=== PATIENT | female | born 1970 | race Caucasian/White ===

== ENCOUNTER 2017-06-15 14:58 | Emergency (ER) | payer OTHER ==
--- NOTE | 2017-06-15 16:22 | UC ---
Lower Extremity/Ankle HPI - HPI Summary HPI Summary: 46 year old female presents with complains of left knee pain secondary to falling at work. - History of Current Complaint Stated Complaint: LEFT KNEE INJURY WC Time Seen by Provider: 06/15/17 16:21 Hx Obtained From: Patient Hx Last Menstrual Period: December Onset/Duration: Sudden Onset Severity Initially: Moderate Severity Currently: Moderate Pain Scale Used: 0-10 Numeric - 5 - Allergies/Home Medications Allergies/Adverse Reactions: Allergies Allergy/AdvReac Type Severity Reaction Status Date / Time No Known Allergies Allergy Verified 06/15/17 16:19 Home Medications: Home Medications Ibuprofen [Advil] 800 mg PO ONCE PRN 06/15/17 [History Confirmed 06/15/17] PMH/Surg Hx/FS Hx/Imm Hx Previously Healthy: Yes - Surgical History Surgical History: Yes Surgery Procedure, Year, and Place: . Tubal Ligation - Family History Known Family History: Positive: None, Cardiac Disease - BROTHER'S FIRST HEART ATTACK IN EARLY 40'S, Diabetes - Social History Alcohol Use: Rare Substance Use Type: None Smoking Status (MU): Never Smoked Tobacco Review of Systems Constitutional: Negative Skin: Negative Eyes: Negative ENT: Negative Respiratory: Negative Cardiovascular: Negative Gastrointestinal: Negative Genitourinary: Negative Motor: Negative Neurovascular: Negative Musculoskeletal: Other: - left knee pain Neurological: Negative Psychological: Negative All Other Systems Reviewed And Are Negative: Yes Physical Exam Triage Information Reviewed: Yes Appearance: Well-Appearing Vital Signs Reviewed: Yes Eye Exam: Normal ENT Exam: Normal Dental Exam: Normal Neck exam: Normal Neck: Positive: 1 Respiratory Exam: Normal Cardiovascular Exam: Normal Abdominal Exam: Normal Musculoskeletal: Positive: Other: - left knee pain/swelling Neurological Exam: Normal Psychological Exam: Normal Skin Exam: Normal Lower Extremity Course/Dx - Differential Dx/Diagnosis Provider Diagnoses: left knee pain. left knee contusion Discharge - Discharge Plan Condition: Stable Disposition: HOME Prescriptions: Ibuprofen TAB* [Motrin TAB* 800 MG] 800 mg PO Q6H #30 tab Patient Education Materials: Knee Pain (ED) Referrals: Teddy Gutierrez MD [Medical Doctor] - Tesha Mcarthur MD [Primary Care Provider] -
[2017-06-15 16:25] VITALS: BP 113/82
--- NOTE | 2017-06-15 16:51 | RAD ---
INDICATION: Left knee pain. Fall. COMPARISON: None TECHNIQUE: AP, lateral, tunnel, and sunrise views were obtained. FINDINGS: The bony structures, joint spaces, and soft tissues are normal for age. IMPRESSION: NEGATIVE EXAMINATION.
== END 2017-06-15 17:09 | disposition home or self-care (01) ==
LOC: UCCORT 14:58
DX: S80.02XA Contusion of left knee, initial encounter (principal); W19.XXXA Unspecified fall, initial encounter; Y92.9 Unspecified place or not applicable; M25.562 Pain in left knee
CPT/HCPCS: 99213; G0463

== ENCOUNTER 2017-12-24 10:20 | Day surgery (SDC) | payer OTHER ==
--- NOTE | 2017-12-19 12:58 | HP ---
PREOPERATIVE HISTORY AND PHYSICAL: DATE OF ADMISSION/SURGERY: 12/24/17 DATE OF OFFICE VISIT: 12/18/17 ATTENDING SURGEON: Dr. Cristiane Brown* (dictated by JULIO Diaz). PROCEDURE: Left knee arthroscopy, partial meniscectomy. CHIEF COMPLAINT: Left knee pain. HISTORY OF PRESENT ILLNESS: Mary Ann is a 47-year-old female who presented to the clinic for left knee pain after a work-related injury that caused her medial meniscus tear. She has failed conservative measures. Has therefore agreed to undergo a left knee arthroscopy, partial meniscectomy with Dr. Brown on 12/24/17. PAST MEDICAL HISTORY: Mild osteoarthritis, occasional depression. PAST SURGICAL HISTORY: in 1987, tubal ligation 1991. The patient denies prior complications with anesthesia. MEDICATIONS: 1. Ibuprofen 200 mg 3 tabs by mouth as needed. 2. Tylenol Extra Strength 500 mg 2 tabs by mouth as needed. 3. Multivitamin 1 by mouth daily. ALLERGIES: No known drug allergies. FAMILY HISTORY: Positive for dad and grandparents on the paternal side for diabetes, heart disease, hypertension in her father, stroke in her paternal aunt , cancer in her mother, history of DVT in her daughter. SOCIAL HISTORY: She lives alone. 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 She denies tobacco use. She reports occasional alcohol consumption. She exercises occasionally. She is right-hand dominant. REVIEW OF SYSTEMS: A 14-point review of systems was reviewed with the patient and positive for current complaint, otherwise negative. Denies chest pain, shortness of breath, fever, chills, history of bleeding disorder, personal history of DVT or PE, and denies history of hep C or HIV. PHYSICAL EXAMINATION GENERAL: A 47-year-old, well-developed, well-nourished female in no acute distress. Alert and oriented x3. Appropriate mood and affect. Appropriate balance and coordination of upper extremities. VITAL SIGNS: Height 66, weight 196, blood pressure 124/80, respiratory rate 20 , temperature 98, and BMI 31.6. HEENT: Normocephalic and atraumatic. PERRLA. Throat clear. NECK: Supple. PULMONARY: Lungs clear to auscultation bilaterally. No wheezing, rhonchi, or rales. CARDIO: Regular rate and rhythm. S1 and S2. No murmurs, gallops, or rubs. No edema. ABDOMEN: Positive bowel sounds, soft, and nontender. NEURO: Alert and oriented x3. Cranial nerves grossly intact. Sensation intact to light touch. MUSCULOSKELETAL: Left lower extremity, skin is intact. No warmth or erythema. Mild effusion. Tenderness over the medial joint line. Range of motion 8 to 95. Stable Tonny. Negative posterior drawer. Stable to varus and valgus stress. Calf is soft and nontender. +2 PT pulse. Sensation intact to light touch distally. DIAGNOSTIC STUDIES: MRI of the left knee revealed mild osteoarthritis and a medial meniscus tear. IMPRESSION: Left knee medial meniscus tear. PLAN: The patient is scheduled to undergo a left knee arthroscopy, partial meniscectomy with Dr. Brown on 12/24/17. She will follow up 14 days postop for followup and suture removal. Percocet was sent to the patient's pharmacy for postop pain management. I-STOP was checked and is as expected. Aspirin was sent to the patient's pharmacy for DVT prophylaxis due to her daughter's history of DVT. JULIO DIAZ [id number]/[facility] #: [id number] [place]
[~2017-12-24 10:20] MED LIST: Buffered Lidocaine 0.9% SYRIN* 5 ML/SYR SYRINGE INTRADERM ONE; DiMENhydriNATE IV* 50 MG/ML VIAL IV PUSH PRN; Famotidine TAB* 20 MG ONE; Famotidine TAB* 20 MG PO ONE; Morphine INJ* 2 MG/ML 1 ML CARPUJECT IV PRN; Naloxone* 0.4 MG/ML 1 ML VIAL IV PRN; PROCHLORPERAZINE INJ 5 MG/ML 2 ML VIAL IV PRN; Scopolamine 1.5 mg* PATCH TRANSDERM PRN; oxyCODONE/Acetamin 5/325 MG* TAB PO PRN
[2017-12-24] MEDS ORDERED: Midazolam* 1 MG/ML 5 ML VIAL (5 MG) ONE (10:55)
[2017-12-24] MEDS ORDERED: fentaNYL* 50 MCG/ML 2 ML VIAL (100 MCG VIAL) ONE ×2 (10:55→13:09)
[2017-12-24] MEDS ORDERED: ceFAZolin 2 GM PREMIX (*) 2 GM/50 ML BAG IVPB ONE (11:10)
[2017-12-24] MEDS ORDERED: Lidocaine 1% MPF wEPI 200,000* 30 ML SDV ONE (11:37)
[2017-12-24] MEDS ORDERED: Bupivacaine 0.25% SDV* 30 ML ONE (11:37)
[2017-12-24] MEDS ORDERED: Lidocaine 2% PF * 5 ML VIAL ONE ×2 (12:09→13:26)
[2017-12-24] MEDS ORDERED: Dexamethasone IV* 4 MG/ML 1 ML (4 MG) ONE ×2 (12:09→13:26)
[2017-12-24] MEDS ORDERED: Propofol* 10 MG/ML 20 ML BTL IV PUSH ONE ×2 (12:09→13:26)
[2017-12-24] MEDS ORDERED: PROCHLORPERAZINE INJ 5 MG/ML 2 ML VIAL ONE (12:09)
[2017-12-24] MEDS ORDERED: Ondansetron INJ* 2 MG/ML VIAL ONE (12:09)
[2017-12-24] MEDS ORDERED: Ketorolac INJ* 30 MG/ML 1 ML VIAL ONE ×2 (12:10→13:26)
[2017-12-24] MEDS ORDERED: EPHEDrine (Pressors)* 50 MG/ML VIAL ONE (12:17)
[2017-12-24] MEDS: fentaNYL* 50 MCG/ML 2 ML VIAL (100 MCG VIAL) IV PRN ×2 (13:10→13:24)
[2017-12-24 14:15] VITALS: BP 119/77
--- NOTE | 2017-12-26 22:29 | OP ---
CC: Primary Care Physician, Fatoumata Tarango MD * DATE OF OPERATION: 12/24/17 - [facility] DATE OF : 68 ATTENDING SURGEON: Crsitiane Brown MD SAMPLE DISPLAY PREPARER: None available. ANESTHESIOLOGIST: Dr. Verdugo. ANESTHESIA: General, LMA intubation. PRE-OP DIAGNOSIS: Left knee medial meniscus tear. POST-OP DIAGNOSIS: Left knee medial meniscus unstable tear with lateral meniscal fraying. OPERATIVE PROCEDURE: Left knee arthroscopy with partial medial and partial lateral meniscectomy, and a small chondroplasty of the patellofemoral joint. COMPLICATIONS: None. ESTIMATED BLOOD LOSS: Minimal. INDICATIONS: Mary Ann Verdugo is a 47-year-old female who sustained a work related injury to her knee in May. She failed conservative management and was diagnosed with an unstable meniscus tear that extended to the root. Risks and benefits of surgery were discussed at length to include, but are not limited to bleeding, infection, damage to nerves, vessels or surrounding structures, wound nonhealing, persistent pain, need for further surgery, scarring, stiffness, incomplete relief of symptoms, and risks of anesthesia. DESCRIPTION OF PROCEDURE: The patient was greeted in the preoperative area by the attending surgeon. The correct extremity was marked, consent was confirmed. The patient was brought back to the operating room suite where she was placed in a supine position on the operating room table. She then underwent general anesthesia and LMA intubation after which she was appropriately positioned on the bed. An unsterile tourniquet was placed proximally on the thigh. The left leg was then prepped and draped in the usual sterile fashion beginning with chlorhexidine soap scrub and alcohol wipe, and a final prep with ChloraPrep. After appropriate surgical pause indicating site, side, procedure, and administration of antibiotics, the knee was intraarticularly injected with 1% lidocaine with epi. An anterolateral portal was made with 11-blade. The scope was introduced into the joint. The joint was examined. There were grade 0 changes to the trochlea. The medial and lateral gutters were intact. There were small area of grade 2 changes along the patella, particularly in the lateral portion. The scope was brought to the medial compartment, which demonstrated very mild chondral changes, grade 0-1 changes of the medial femoral condyle, grade 1 and smaller to grade 2 changes of the tibial plateau. There was an unstable meniscal fraying and a large flap that was displaced into the notch from the posterior root. Josefa and biters were then used to debride the unstable flap back. This was a parrot beak-type tear. Once this was complete, attention was directed to the lateral compartment. The knee was placed in a [id number] position. There were grade 0 to 1 changes in the lateral femoral condyle and lateral plateau, and some small meniscal fraying, particularly about the body and the root. This was debrided back using the shaver. Once this was complete, the knee was placed in extension, a small chondro-plasty was done in the undersurface of the patella that was debrided back to a stable layer. The medial compartment was visited again to make sure that there was no remaining fragments. The knee was taken through range of motion, there was no evidence of loose bodies. The knee was thoroughly lavaged to remove any loose debris. The wounds were then copiously irrigated with sterile saline. The portals were closed with 3-0 nylon. The knee was intraarticularly injected with 0.25% Marcaine plain. Sterile dressings were applied as well as a Cryo/Cuff. She was awoken from anesthesia and transferred to PACU in stable condition. POSTOPERATIVE PLAN: She will be weightbearing as tolerated. She will be discharged on pain medication. DVT prophylaxis was considered, but deferred due to no previous personal or family history. I will see the patient back in 14 days. [id number]/[facility] #: [id number] TAJ
[2017-12-27] MEDS ORDERED: Scopolamine PATCH Remove* 1 NOTE MISC PATCH OFF ONE (05:47)
== END 2017-12-24 14:49 | disposition home or self-care (01) ==
LOC: OREAST 10:20
PROVIDERS: ATTEND Orthopaedic Surgery
DX: S83.232A Complex tear of medial meniscus, current injury, left knee, initial encounter (principal); S83.282A Other tear of lateral meniscus, current injury, left knee, initial encounter; X58.XXXA Exposure to other specified factors, initial encounter; Y92.89 Other specified places as the place of occurrence of the external cause; Y99.0 Civilian activity done for income or pay; M17.12 Unilateral primary osteoarthritis, left knee; M25.462 Effusion, left knee; M25.562 Pain in left knee
CPT/HCPCS: A9270-GY; J0690; J0780; J1100; J1885; J2001; J2250; J2405; J2704; J3010

== ENCOUNTER 2018-11-16 12:52 | Emergency (ER) | payer BC, OTHER ==
--- OUTSIDE RECORDS SUMMARY | 2018-11-16 13:26 | XMS REPORT | Continuity of Care Document ---
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 Active Onset: 01/04/2018 Pulmonary embolism Akhil Boggs DO Active Onset: 01/04/2018 Anemia Akhil Boggs DO Active Onset: 01/18/2018 Other thrombophilia Akhil Boggs DO Active Onset: 02/15/2018 Cough Akhil Boggs DO Active Onset: 02/15/2018 Acute upper respiratory infection, Akhil Boggs DO Active unspecified Onset: 02/15/2018 Pain in left lower limb Akhil Boggs DO Active Onset: 04/24/2018 Iron deficiency Akhil Boggs DO Active Onset: 04/24/2018 Allergic rhinitis Akhil Boggs DO Active Onset: 06/04/2018 Deep venous thrombosis of left Isi Guzman PA Active lower extremity Onset: 09/17/2018 Hypercoagulability state Akhil Boggs DO Active Onset: 04/26/2011 Benign essential hypertension Tesha Suarez M.D. Resolved Resolved: 07/20/2015 Onset: 04/26/2011 Hyperlipidemia Tesha Suarez M.D. Resolved Resolved: 07/20/2015 Family History Date Family Member(s) Observation Comments Father Hypertension Father due to DE () Father Diabetes Mother due to Breast Cancer () - when patient was 6 years old. First Sister Breast Cancer Social History Type Date Description Comments Sex Unknown Lives With Son Occupation [employer] - [employer] Work Status Not Currently Working ETOH Use Occasionally consumes alcohol Tobacco Use Start: Unknown Patient has never smoked Smoking Status Reviewed: 10/03/18 Patient has never smoked Allergies, Adverse Reactions, Alerts Description No Known Drug Allergies Medications Medication Date Status Form Strength Qnty SIG Indications Ordering Provider Eliquis 06/24/ Active Tablets 5mg 60tab 1 by mouth I82.402 Flakita 2017 s twice a day DO Akhil Pantoprazole 01/04/ Active Solution 40mg 90uni 1 by mouth Justin 2017 Rec ts every day MONICA Leija every morning Loratadine 01/04/ Active Tablets 10mg 90tab 1 by mouth J30.9 Justin 2017 s every day MONICA Leija Tylenol Extra 00/00/ Active Tablets 500mg 2 tabs by Unknown Strength 0000 mouth every 4 hours as needed Augmentin 08/30/ Hx Tablets 500-125mg 21tab Take 1 Justin 2018 - s tablet by MONICA Leija 09/17/ mouth every 2018 8 hours for 7 days. Augmentin 02/15/ Hx Tablets 500-125mg 21tab 1 by mouth J06.9 Flakita 2017 - s three times Akhil 03/01/ a day DO 2017 Eliquis 02/07/ Hx Tablets 5mg 60tab 1 by mouth Flakita 2017 - s twice a day Akhil, 06/12/ DO 2018 Guaifenesin 02/06/ Hx Tablets 400mg 30tab 1 tab by J06.9 Emelina 2017 - s mouth every Fatoumata, 03/01/ 4-6 hours M.D. 2017 as needed cough Tessalon Perles 02/06/ Hx Capsules 100mg 30cap 1 tab by J06.9 Emelina, 2017 - s mouth three , 03/01/ times a day M.D. 2017 as needed No Active 10/10/ Hx Unknown Medications 2017 - 2017 Sulfamethoxazole 08/25/ Hx Tablets 800-160mg 6tabs 1 tab by R30.0 Emelina, /Trimethoprim DS 2014 - mouth twice Fatoumata, 10/10/ a day x 3 M.D. 2018 days Fluconazole 07/20/ Hx Tablets 150mg 1tabs 1 by mouth Emelina, 2014 - by mouth Fatoumata, 07/27/ every day M.D. 2014 Nystatin 06/29/ Hx Powder [id number] 45gm apply L30.9 Emelina, 2014 - t/GM powder to Fatoumata, 07/06/ affected M.D. 2014 area bid Ketoconazole 06/29/ Hx Cream 2% 30gm apply to L30.9 Emelina, 2014 - affected Fatoumata, 07/06/ area once M.D. 2014 daily Triamcinolone 06/22/ Hx Cream 0.1% 30gm apply L30.9 Emelina, Acetonide 2014 - sparingly Fatoumata, 10/10/ to affected M.D. 2018 areas twice a day Tizanidine HCL 06/22/ Hx Capsules 2mg 30cap 1 cap by M54.5 Emelina, 2014 - s mouth three , 07/20/ times a day M.D. 2014 as needed Naproxen 06/22/ Hx Tablets 500mg 30tab 500 mg q12 M54.5 Emelina, 2014 - s every 12 Fatoumata, 07/20/ hours by M.DVijay 2014 mouth as needed for pain. take with food Terbinafine HCL 01/11/ Hx Tablets 250mg 14tab onea day x 110.3 Blue 2014 - s 2 weeks Tesha , M.DVijay 2014 Benadryl 01/11/ Hx Tablets 25mg 90tab take 3 at 782.1 Blue 2014 - s bedtime Tesha , M.DVijay 2014 No Active Hx Unknown Medications 2014 - 2014 Fexofenadine HCL 01/01/ Hx Tablets 60mg 60tab one PO bid 708.1 Khurram, 2015 - s Jenniferl , NUT GRINDER 2014 Medrol (Eleuterio) 01/01/ Hx Tablets 4mg 1pack take as 708.1 Khurram, 2015 - directed Jenniferl , NUT GRINDER 2015 Meclizine HCL 09/27/ Hx Tablets 12.5mg 30tab one po qid Blue, 2012 - s taryn Parkinson 01/01/ MD 2014 Ibuprofen 06/08/ Hx Tablets 800mg 90tab 1 po tid Blue, 2010 - s taryn Parkinson 01/01/ MD 2014 Omeprazole / Hx Capsules 20mg 30cap 1 po qd prn Blue 0000 - DR didier Parkinson 01/01/ MD 2014 Cetirizine HCL / Hx Tablets 10mg 1 PO qd Unknown 0000 - 2014 Loratadine / Hx Tablets 10mg 1 PO qd Unknown 0000 - 2014 Cheratussin ac / Hx Syrup 100-10mg/ Unknown 0000 - 5ML 2014 Clarithromycin / Hx Tablets 500mg Unknown 0000 - 2014 Eliquis / Hx Tablets 5mg taking 10mg Unknown 0000 - bid x 7 02/15/ days then 5 2018 mg bid Ferrous Sulfate / Hx Tablets 325(65Fe) take 1 Unknown 0000 - mg tablet by 06/12/ mouth 1 2018 times per day for iron deficiency Pradaxa / Hx Capsules 150mg Take One Unknown 0000 - Capsule By 06/24/ Mouth Twice 2018 A Day Start Tomorrow To Treat Pe Immunizations CPT Code Status Date Vaccine Lot # [id number] Given 07/09/2018 Influenza Vaccine (Fluzone) Age 3 And Older [id number] Given 06/08/2011 flu vaccination 71136 Given 06/14/2010 flu vaccination 51305 Given 09/03/2009 flu vaccination 27014 Given 09/03/2009 H1N1 Immuniation Adminstration Vital Signs Date Vital Result Comment 10/03/2018 11:25am BP Systolic 152 mmHg BP Diastolic 96 mmHg Body Temperature 96.7 F Heart Rate 84 /min Respiratory Rate 16 /min Weight 235.25 lb O2 % BldC Oximetry 98 % Pain Level 6 left knee 09/17/2018 10:55am BP Systolic 130 mmHg BP Diastolic 95 mmHg Body Temperature 96.6 F Heart Rate 84 /min Respiratory Rate 16 /min Weight 231.00 lb O2 % BldC Oximetry 96 % Pain Level 8 headach/ knee 08/30/2018 2:19pm BP Systolic Sitting Right Arm 120 mmHg BP Diastolic Sitting Right Arm 82 mmHg Body Temperature 97.9 F Heart Rate 86 /min Respiratory Rate 18 /min Height 66 inches 5'6" Weight 233.00 lb BMI (Body Mass Index) 37.6 kg/m2 BSA (Body Surface Area) 2.13 m2 [place] body weight in kilograms 59 kg O2 % BldC Oximetry 97 % 06/24/2018 12:48pm BP Systolic 134 mmHg BP Diastolic 88 mmHg Body Temperature 97.7 F Heart Rate 78 /min Respiratory Rate 16 /min Weight 227.38 lb O2 % BldC Oximetry 99 % Pain Level 5 Left Leg 06/12/2018 2:17pm BP Systolic Sitting Right Arm 128 mmHg BP Diastolic Sitting Right Arm 84 mmHg Body Temperature 97.5 F Heart Rate 97 /min Respiratory Rate 20 /min Weight 225.00 lb O2 % BldC Oximetry 97 % 04/24/2018 8:33am BP Systolic 121 mmHg BP Diastolic 79 mmHg Body Temperature 97.0 F Heart Rate 75 /min Respiratory Rate 18 /min Weight 226.12 lb O2 % BldC Oximetry 97 % Pain Level 7 Lt Knee 04/10/2018 8:46am BP Systolic Sitting Left Arm 122 mmHg BP Diastolic Sitting Left Arm 82 mmHg Body Temperature 97.9 F Heart Rate 76 /min Height 66 inches 5'6" Weight 227.25 lb BMI (Body Mass Index) 36.7 kg/m2 BSA (Body Surface Area) 2.11 m2 [place] body weight in kilograms 59 kg 03/01/2018 8:42am BP Systolic 109 mmHg BP Diastolic 78 mmHg Body Temperature 97.2 F Heart Rate 72 /min Respiratory Rate 18 /min Weight 221.00 lb O2 % BldC Oximetry 99 % Pain Level 0 02/15/2018 2:37pm BP Systolic 133 mmHg BP Diastolic 92 mmHg Body Temperature 98.3 F Heart Rate 91 /min Weight 222.00 lb O2 % BldC Oximetry 95 % Pain Level 5 left knee 02/06/2018 4:27pm BP Systolic Sitting Left Arm 118 mmHg BP Diastolic Sitting Left Arm 74 mmHg Body Temperature 99.2 F Heart Rate 100 /min Height 66 inches 5'6" Weight 220.00 lb BMI (Body Mass Index) 35.5 kg/m2 BSA (Body Surface Area) 2.08 m2 [place] body weight in kilograms 59 kg 01/18/2018 9:23am BP Systolic 112 mmHg BP Diastolic 74 mmHg Body Temperature 97.8 F Heart Rate 79 /min Respiratory Rate 17 /min Height 65 inches 5'5" Weight 217.50 lb BMI (Body Mass Index) 36.2 kg/m2 BSA (Body Surface Area) 2.05 m2 [place] body weight in kilograms 57 kg O2 % BldC Oximetry 97 % On Room Air Pain Level 4 Left Knee 01/04/2018 9:33am BP Systolic 100 mmHg BP Diastolic 60 mmHg Body Temperature 97.2 F Heart Rate 112 /min Height 65 inches 5'5" Weight 211.00 lb BMI (Body Mass Index) 35.1 kg/m2 BSA (Body Surface Area) 2.02 m2 [place] body weight in kilograms 57 kg O2 % BldC Oximetry 93 % O2 Saturation Level with Exercise 91 % 10/10/2017 2:16pm BP Systolic Sitting Left Arm 126 mmHg BP Diastolic Sitting Left Arm 80 mmHg Heart Rate 60 /min Height 65 inches 5'5" Weight 211.25 lb BMI (Body Mass Index) 35.1 kg/m2 BSA (Body Surface Area) 2.02 m2 [place] body weight in kilograms 57 kg 12/15/2015 9:41am Height 66 inches 5'6" Weight 198.00 lb BMI (Body Mass Index) 32.0 kg/m2 BSA (Body Surface Area) 1.99 m2 10/12/2015 9:12am Height 66 inches 5'6" Weight 202.00 lb BMI (Body Mass Index) 32.6 kg/m2 BSA (Body Surface Area) 2.01 m2 08/25/2015 10:24am BP Systolic 124 mmHg BP Diastolic 76 mmHg Body Temperature 98.0 F Height 66 inches 5'6" Weight 210.50 lb BMI (Body Mass Index) 34.0 kg/m2 BSA (Body Surface Area) 2.04 m2 Last Menstrual Period [id number] 08/10/2015 9:00am Height 66 inches 5'6" Weight 207.00 lb BMI (Body Mass Index) 33.4 kg/m2 BSA (Body Surface Area) 2.03 m2 07/27/2015 2:53pm BP Systolic 110 mmHg BP Diastolic 78 mmHg Body Temperature 97.4 F Heart Rate 76 /min Respiratory Rate 22 /min Weight 212.25 lb 07/20/2015 8:48am BP Systolic 122 mmHg BP Diastolic 74 mmHg Body Temperature 98.0 F Height 66 inches 5'6" Weight 210.38 lb BMI (Body Mass Index) 34.0 kg/m2 BSA (Body Surface Area) 2.04 m2 07/06/2015 8:49am BP Systolic 122 mmHg BP Diastolic 76 mmHg Height 66 inches 5'6" Weight 212.25 lb BMI (Body Mass Index) 34.3 kg/m2 BSA (Body Surface Area) 2.05 m2 06/29/2015 1:05pm BP Systolic 116 mmHg BP Diastolic 74 mmHg Body Temperature 97.8 F Height 66 inches 5'6" Weight 213.50 lb BMI (Body Mass Index) 34.5 kg/m2 BSA (Body Surface Area) 2.06 m2 Last Menstrual Period [id number] 06/22/2015 10:36am BP Systolic 114 mmHg BP Diastolic 723 mmHg Height 66 inches 5'6" Weight 217.00 lb BMI (Body Mass Index) 35.0 kg/m2 BSA (Body Surface Area) 2.07 m2 Last Menstrual Period [id number] irreg 04/28/2015 1:24pm BP Systolic Sitting Left Arm 124 mmHg BP Diastolic Sitting Left Arm 82 mmHg Heart Rate 68 /min Respiratory Rate 19 /min Height 66 inches 5'6" Weight 220.00 lb BMI (Body Mass Index) 35.5 kg/m2 BSA (Body Surface Area) 2.08 m2 03/26/2015 10:26am BP Systolic Sitting Left Arm 118 mmHg BP Diastolic Sitting Left Arm 80 mmHg Heart Rate 64 /min Respiratory Rate 19 /min Height 66 inches 5'6" Weight 228.00 lb BMI (Body Mass Index) 36.8 kg/m2 BSA (Body Surface Area) 2.11 m2 01/11/2015 1:06pm BP Systolic Sitting Left Arm 128 mmHg BP Diastolic Sitting Left Arm 80 mmHg Heart Rate 68 /min Respiratory Rate 19 /min Height 66 inches 5'6" Weight 242.00 lb BMI (Body Mass Index) 39.1 kg/m2 BSA (Body Surface Area) 2.17 m2 Last Menstrual Period [id number] 01/01/2015 11:33am BP Systolic Sitting Left Arm 128 mmHg BP Diastolic Sitting Left Arm 76 mmHg Body Temperature 97.9 F Height 66 inches 5'6" Weight 246.00 lb BMI (Body Mass Index) 39.7 kg/m2 BSA (Body Surface Area) 2.18 m2 Last Menstrual Period [id number] irreg menses 09/27/2012 1:21pm BP Systolic 122 mmHg BP Diastolic 76 mmHg Height 66 inches 5'6" Weight 239.00 lb 05/21/2012 2:04pm BP Systolic 110 mmHg BP Diastolic 70 mmHg 05/21/2012 2:04pm BP Systolic 148 mmHg BP Diastolic 92 mmHg Height 66 inches 5'6" Weight 232.00 lb 04/04/2012 1:51pm BP Systolic 128 mmHg BP Diastolic 88 mmHg Height 66 inches 5'6" Weight 234.00 lb 01/18/2012 9:10am BP Systolic 104 mmHg BP Diastolic 72 mmHg Body Temperature 98.1 F Heart Rate 80 /min Height 66 inches 5'6" Weight 225.00 lb 12/01/2011 9:07am BP Systolic 124 mmHg BP Diastolic 68 mmHg Heart Rate 78 /min Respiratory Rate 18 /min Height 66 inches 5'6" Weight 218.00 lb 11/03/2011 1:34pm BP Systolic 124 mmHg BP Diastolic 66 mmHg Body Temperature 97.9 F Weight 217.00 lb 11/03/2011 1:36pm Height 66 inches 5'6" 07/26/2011 5:18pm BP Systolic 122 mmHg BP Diastolic 66 mmHg Body Temperature 97.0 F Heart Rate 72 /min Height 66 inches 5'6" Weight 218.00 lb 06/08/2011 10:46am BP Systolic 122 mmHg BP Diastolic 80 mmHg Body Temperature 98.4 F Height 66 inches 5'6" Weight 221.00 lb 04/26/2011 12:03pm BP Systolic 128 mmHg BP Diastolic 94 mmHg Heart Rate 80 /min Height 66 inches 5'6" Weight 218.00 lb Results Test Date Facility Test Result H/L Range Note CBC 06/24/2018 [facility] White Blood 6.5 K/uL N 3.1-10.7 1 W/Automated [address] [place] [address] [phone] Red Blood Count 4.64 M/uL N 3.90-5.40 Hemoglobin 13.4 gm/dL N 11.6-15.8 Hematocrit 41.8 % N 36.0-46.1 Mean Cell Volume 90.1 fl N 80.9-99.0 Mean Corpuscular HGB 28.9 pg N 25.9-32.7 Mean Corpuscular HGB Conc 32.1 g/dL N 30.8-34.3 Platelet Count 304 K/uL N 155-360 Red Cell Distri Width SD 43.4 fl N 3-47 Red Cell Distri Width %CV 13.5 % N 11.7-14.4 Mean Platelet Volume 10.8 fL N 8.9-12.4 Neut% 66.5 % N 40.4-72.8 Lymph % 24.7 % N 20.0-42.0 Martin % 7.1 % N 4.3-13.2 Eo% 1.1 % N 0.0-6.6 Bas% 0.6 % N 0.0-1.1 Neut# 4.34 K/uL N 1.8-7.0 Lymph # 1.61 K/uL N 1.0-4.0 Martin # 0.46 K/uL N 0.3-0.9 Eos # 0.07 K/uL N 0.0-0.5 Baso # 0.04 K/uL N 0.0-0.1 Iron-Tibc-%Sat 06/24/2018 [facility] Serum Iron 77 g/dL N 50-170 [address] [place] [address] [phone] Total Iron Binding Capacity 295 g/dL N 250-450 Transferrin %Saturation 26 % N 12-57 Urine Dipstick 06/12/2018 [facility] Ua Color Yellow Yellow Ua Clarity Clear Clear Ua Leuko Negative Negative Ua Nitrite Negative Negative Ua Urobilinogen 0.2 0.2 - 1.0 E.U./dL Ua Protein Trace Negative Ua PH 6.0 Low 6.5-7.5 Ua Blood Trace Negative Ua Specific [place] 1.025 1.010-1.030 Ua Ketones Negative Negative Ua Bilirubin Negative Negative Ua Glucose Negative Negative CBS W/Automated Diff 04/08/2018 [facility] White Blood 4.7 K/uL N 3.1-10.[address] [place] [address] [phone] Red Blood Count 4.60 M/uL N 3.90-5.40 Hemoglobin 13.0 gm/dL N 11.6-15.8 Hematocrit 40.5 % N 36.0-46.1 Mean Cell Volume 88.0 fl N 80.9-99.0 Mean Corpuscular HGB 28.3 pg N 25.9-32.7 Mean Corpuscular HGB Conc 32.1 g/dL N 30.8-34.3 Platelet Count 240 K/uL N 155-360 Red Cell Distri Width SD 41.7 fl N 3-47 Red Cell Distri Width %CV 13.3 % N 11.7-14.4 Mean Platelet Volume 10.7 fL N 8.9-12.4 Neut% 52.6 % N 40.4-72.8 Lymph % 36.6 % N 20.0-42.0 Martin % 6.8 % N 4.3-13.2 Eo% 3.4 % N 0.0-6.6 Bas% 0.6 % N 0.0-1.1 Neut# 2.49 K/uL N 1.8-7.0 Lymph # 1.73 K/uL N 1.0-4.0 Martin # 0.32 K/uL N 0.3-0.9 Eos # 0.16 K/uL N 0.0-0.5 Baso # 0.03 K/uL N 0.0-0.1 Comprehensive Metabolic 04/08/2018 [facility] Glucose 90 mg/dL N 74-106 Panel [address] [place] [address] [phone] BUN 17 mg/dL N 7-18 Creatinine 0.7 mg/dL N 0.6-1.3 Glom Filtration Rate, Estimate >60 mL/min >60 If >60 mL/min >60 3 BUN/Creat 24.2 ratio Sodium 143 mmol/L N 136-145 Potassium 3.8 mmol/L N 3.5-5.1 Chloride 111 mmol/L High 98-107 Carbon Dioxide 22 mmol/L N 21-32 Anion Gap 10 mEq/L N 8-16 Calcium 8.3 mg/dL Low 8.5-10.1 Total Protein 7.0 g/dL N 6.4-8.2 Albumin 3.6 g/dL N 3.4-5.0 Globulin 3.4 g/dL N 1.9-4.3 Alb/Glob 1.1 ratio Bilirubin,Total 0.3 mg/dL N 0.2-1.0 Sgot/Ast 17 U/L N 15-37 SGPT/Alt 20 U/L N 12-78 Alkaline Phosphatase 61 U/L N 45-117 Laboratory test finding 04/08/2018 [facility] Ferritin 33 ng/mL N 8-[address] [place] [address] [phone] Total Iron Binding Capacity 260 g/dL N 250-450 Xray 02/25/2018 [facility] - Radiology Angio, Chest W <pending> [address] And W/[place] [address] [phone] CBS 02/15/2018 [facility] White Blood Count 6.6 K/uL N 3.1-10.7 W/Automated [address] [place] [address] [phone] Red Blood Count 4.50 M/uL N 3.90-5.40 Hemoglobin 12.9 gm/dL N 11.6-15.8 Hematocrit 39.1 % N 36.0-46.1 Mean Cell Volume 86.9 fl N 80.9-99.0 Mean Corpuscular HGB 28.7 pg N 25.9-32.7 Mean Corpuscular HGB Conc 33.0 g/dL N 30.8-34.3 Platelet Count 380 K/uL High 155-360 Red Cell Distri Width SD 41.3 fl N 3-47 Red Cell Distri Width %CV 13.5 % N 11.7-14.4 Mean Platelet Volume 9.9 fL N 8.9-12.4 Neut% 58.4 % N 40.4-72.8 Lymph % 29.2 % N 20.0-42.0 Martin % 8.7 % N 4.3-13.2 Eo% 2.9 % N 0.0-6.6 Bas% 0.8 % N 0.0-1.1 Neut# 3.85 K/uL N 1.8-7.0 Lymph # 1.92 K/uL N 1.0-4.0 Martin # 0.57 K/uL N 0.3-0.9 Eos # 0.19 K/uL N 0.0-0.5 Baso # 0.05 K/uL N 0.0-0.1 Comprehensive Metabolic 02/15/2018 [facility] Glucose 80 mg/dL N 74-106 Panel [address] [place] [address] [phone] BUN 15 mg/dL N 7-18 Creatinine 0.7 mg/dL N 0.6-1.3 Glom Filtration Rate, Estimate >60 mL/min >60 If >60 mL/min >60 4 BUN/Creat 21.4 ratio Sodium 142 mmol/L N 136-145 Potassium 4.1 mmol/L N 3.5-5.1 Chloride 110 mmol/L High 98-107 Carbon Dioxide 24 mmol/L N 21-32 Anion Gap 8 mEq/L N 8-16 Calcium 8.6 mg/dL N 8.5-10.1 Total Protein 7.3 g/dL N 6.4-8.2 Albumin 3.8 g/dL N 3.4-5.0 Globulin 3.5 g/dL N 1.9-4.3 Alb/Glob 1.1 ratio Bilirubin,Total 0.2 mg/dL N 0.2-1.0 Sgot/Ast 18 U/L N 15-37 SGPT/Alt 25 U/L N 12-78 Alkaline Phosphatase 84 U/L N 45-117 Iron-Tibc-%Sat 02/15/2018 [facility] Serum Iron 44 g/dL Low 50-170 [address] [place] [address] [phone] Total Iron Binding Capacity 271 g/dL N 250-450 Transferrin %Saturation 16 % N 12-57 Anticardiolipin AB 01/04/2018 [facility] Anticardiolipin < 9 0-14 5, 6 Iga/Igg/Igm [address] Igg GPLU/[place] [address] [phone] Anticardiolipin Igm, Quant < 9 MPLU/mL 0-12 7 Anticardiolipin Iga < 9 APLU/mL 0-11 8 Antithrombin III 01/04/2018 [facility] Antithrombin III 168 % High 75-135 [address] [place] [address] [phone] Antithrombin III Antigen 112 % 72-124 10 Laboratory test 01/04/2018 [facility] BUN <pending> finding [address] [place], [place] [id number] [phone] CBS W/Automated 01/04/2018 [facility] White Blood 6.3 K/uL N 3.1-10.[address] [place] [address] [phone] Red Blood Count 4.49 M/uL N 3.90-5.40 Hemoglobin 12.9 gm/dL N 11.6-15.8 Hematocrit 39.5 % N 36.0-46.1 Mean Cell Volume 88.0 fl N 80.9-99.0 Mean Corpuscular HGB 28.7 pg N 25.9-32.7 Mean Corpuscular HGB Conc 32.7 g/dL N 30.8-34.3 Platelet Count 348 K/uL N 155-360 Red Cell Distri Width SD 39.8 fl N 3-47 Red Cell Distri Width %CV 12.8 % N 11.7-14.4 Mean Platelet Volume 10.2 fL N 8.9-12.4 Neut% 63.1 % N 40.4-72.8 Lymph % 26.3 % N 20.0-42.0 Martin % 6.7 % N 4.3-13.2 Eo% 3.3 % N 0.0-6.6 Bas% 0.6 % N 0.0-1.1 Neut# 3.98 K/uL N 1.8-7.0 Lymph # 1.66 K/uL N 1.0-4.0 Martin # 0.42 K/uL N 0.3-0.9 Eos # 0.21 K/uL N 0.0-0.5 Baso # 0.04 K/uL N 0.0-0.1 Comprehensive Metabolic 01/04/2018 [facility] Glucose 97 mg/dL N 74-106 Panel [address] [place], [place] [address] [phone] BUN 19 mg/dL High 7-18 Creatinine 0.8 mg/dL N 0.6-1.3 Glom Filtration Rate, Estimate >60 mL/min >60 If >60 mL/min >60 11 BUN/Creat 23.7 ratio Sodium 138 mmol/L N 136-145 Potassium 3.7 mmol/L N 3.5-5.1 Chloride 105 mmol/L N 98-107 Carbon Dioxide 24 mmol/L N 21-32 Anion Gap 9 mEq/L N 8-16 Calcium 9.1 mg/dL N 8.5-10.1 Total Protein 8.2 g/dL N 6.4-8.2 Albumin 3.9 g/dL 3.4-5.0 Globulin 4.3 g/dL N 1.9-4.3 Alb/Glob 0.9 ratio Bilirubin,Total 0.3 mg/dL N 0.2-1.0 Sgot/Ast 59 U/L High 15-37 SGPT/Alt 112 U/L High 12-78 Alkaline Phosphatase 152 U/L High 45-117 Factor V Leiden 01/04/2018 [facility] Factor V (SEE NOTE) [address] [place], [place] [id number] [phone] Homocyst(E)Ine, 01/04/2018 [facility] Homocyst(e)in 10.1 umol/L 0.0-15. 13 P/S [address], P/S 0 [place], [place] [address] [phone] Iron-Tibc-%Sat 01/04/2018 [facility] Serum Iron 49 g/dL Low 50-170 [address] [place], [place] [address] [phone] Total Iron Binding Capacity 290 g/dL N 250-450 Transferrin %Saturation 17 % N 12-57 Lupus Anticoagulant Reflex 01/04/2018 [facility] PTT-LA 51.4 sec 0.0-51.9 [address] [address] [phone] DRVVT 102.0 sec High 0.0-47.0 Note: Comment: . 14 Methylenetetrahydrofolate 01/04/2018 [facility] MTHFR,Dna (SEE [address] Analysis NOTE) [place], [place] [id number] [phone] Protein C Deficiency Profile 01/04/2018 [facility] Protein 133 % 73- [address] C,Functional [address] [place] [address] [phone] Protein C,Antigen 127 % 60-150 Protein S 01/04/2018 [facility] Protein 134 % 63-140 17 Deficiency Profile [address] S,Functional [place], [place] [address] [phone] Protein S,Total 123 % 60-150 18 Protein S,Free 97 % 57-157 19 Factor II Dna 01/04/2018 [facility] Factor II, Dna (SEE NOTE) Abnormal [address] [place] [address] [phone] Vitamin B12 01/04/2018 [facility] Vitamin B12 644 pg/mL N 193-[address] [place] [address] [phone] Folic Acid > 20.0 ng/mL High 3.1-17.5 Laboratory test 01/04/2018 [facility] DRVVT Mix 67.4 sec High 0.0-47.[address] [place], [place] [address] [phone] DRVVT Confirm 1.4 ratio High 0.8-1.2 Continuous Oximetry 01/02/2018 [facility] Oximetry 93 % N 93-98 21 [address] [place] [address] [phone] Fio2 21 N 21-100 Heart Rate 122 BPM Patient Status AMBULATING Patient Position STANDING Continuous Oximetry 01/02/2018 [facility] Oximetry 94 % N 93-98 [address] [place] [address] [phone] Fio2 21 N 21-100 Heart Rate 90 BPM Patient Status RESTING Patient Position SITTING UP IN BE <SEE NOTE> 22 CBS W/Automated Diff 01/02/2018 [facility] White Blood 6.4 K/uL N 3.1-10.[address] Count [place], [place] [id number] [phone] Red Blood Count 4.16 M/uL N 3.90-5.40 Hemoglobin 11.9 gm/dL N 11.6-15.8 Hematocrit 37.2 % N 36.0-46.1 Mean Cell Volume 89.4 fl N 80.9-99.0 Mean Corpuscular HGB 28.6 pg N 25.9-32.7 Mean Corpuscular HGB Conc 32.0 g/dL N 30.8-34.3 Platelet Count 242 K/uL N 155-360 Red Cell Distri Width SD 42.0 fl N 3-47 Red Cell Distri Width %CV 13.0 % N 11.7-14.4 Mean Platelet Volume 10.1 fL N 8.9-12.4 Neut% 54.2 % N 40.4-72.8 Lymph % 32.0 % N 20.0-42.0 Martin % 9.9 % N 4.3-13.2 Eo% 3.3 % N 0.0-6.6 Bas% 0.6 % N 0.0-1.1 Neut# 3.45 K/uL N 1.8-7.0 Lymph # 2.04 K/uL N 1.0-4.0 Martin # 0.63 K/uL N 0.3-0.9 Eos # 0.21 K/uL N 0.0-0.5 Baso # 0.04 K/uL N 0.0-0.1 Laboratory test 01/02/2018 [facility] Act Partial 81.2 High 23.4-35.0 [address] [place] [address] Time [phone] Comprehensive 01/02/2018 [facility] Glucose 96 mg/dL N 74-106 Metabolic Panel [address] [place] [address] [phone] BUN 14 mg/dL N 7-18 Creatinine 0.6 mg/dL N 0.6-1.3 Glom Filtration Rate, Estimate >60 mL/min >60 If >60 mL/min >60 24 BUN/Creat 23.3 ratio Sodium 139 mmol/L N 136-145 Potassium 3.7 mmol/L N 3.5-5.1 Chloride 107 mmol/L N 98-107 Carbon Dioxide 26 mmol/L N 21-32 Anion Gap 6 mEq/L Low 8-16 Calcium 8.6 mg/dL N 8.5-10.1 Total Protein 7.0 g/dL N 6.4-8.2 Albumin 3.2 g/dL Low 3.4-5.0 Globulin 3.8 g/dL N 1.9-4.3 Alb/Glob 0.8 ratio Bilirubin,Total 0.5 mg/dL N 0.2-1.0 Sgot/Ast 63 U/L High 15-37 SGPT/Alt 99 U/L High 12-78 Alkaline Phosphatase 116 U/L N 45-117 Laboratory test 01/01/2018 [facility] Act Partial 69.7 High 23.4-35.0 [address] Thrombo Time seconds [place], [place] [id number] [phone] Laboratory test 01/01/2018 [facility] Act Partial 66.8 High 23.4-35.0 [address] Thrombo Time seconds [place], [place] [id number] [phone] Continuous 01/01/2018 [facility] Oximetry 87 % Low 93-[address] [place], [place] [id number] [phone] Fio2 21 N 21-100 Heart Rate 125 BPM Patient Status AMBULATING Patient Position STANDING Continuous Oximetry 01/01/2018 [facility] Oximetry 93 % N 93-[address] [place] [address] [phone] Fio2 21 N 21-100 Heart Rate 93 BPM Patient Status RESTING Patient Position SITTING UP IN BE <SEE NOTE> 27 CBS W/Automated 01/01/2018 [facility] White Blood 9.3 K/uL N 3.1-10.7 [address] [place] [address] [phone] Red Blood Count 4.31 M/uL N 3.90-5.40 Hemoglobin 12.4 gm/dL N 11.6-15.8 Hematocrit 38.5 % N 36.0-46.1 Mean Cell Volume 89.3 fl N 80.9-99.0 Mean Corpuscular HGB 28.8 pg N 25.9-32.7 Mean Corpuscular HGB Conc 32.2 g/dL N 30.8-34.3 Platelet Count 253 K/uL N 155-360 Red Cell Distri Width SD 41.9 fl N 3-47 Red Cell Distri Width %CV 13.1 % N 11.7-14.4 Mean Platelet Volume 10.5 fL N 8.9-12.4 Neut% 67.3 % N 40.4-72.8 Lymph % 23.1 % N 20.0-42.0 Martin % 8.0 % N 4.3-13.2 Eo% 1.2 % N 0.0-6.6 Bas% 0.4 % N 0.0-1.1 Neut# 6.25 K/uL N 1.8-7.0 Lymph # 2.14 K/uL N 1.0-4.0 Martin # 0.74 K/uL N 0.3-0.9 Eos # 0.11 K/uL N 0.0-0.5 Baso # 0.04 K/uL N 0.0-0.1 Basic Metabolic Panel 01/01/2018 [facility] Glucose 110 mg/dL High 74-[address] [place] [address] [phone] BUN 11 mg/dL N 7-18 Creatinine 0.6 mg/dL N 0.6-1.3 Glom Filtration Rate, Estimate >60 mL/min >60 If >60 mL/min >60 29 BUN/Creat 18.3 ratio Sodium 139 mmol/L N 136-145 Potassium 4.0 mmol/L N 3.5-5.1 Chloride 108 mmol/L High 98-107 Carbon Dioxide 23 mmol/L N 21-32 Anion Gap 8 mEq/L N 8-16 Calcium 9.0 mg/dL N 8.5-10.1 Laboratory 01/01/2018 [facility] Magnesium 2.3 mg/dL N 1.8-2.4 test finding [address] [place] [address] [phone] Laboratory 01/01/2018 [facility] Act Partial 91.5 High 23.4-35.0 30, test finding [address] [employer] Time seconds [address] [place] [address] [phone] Laboratory 12/31/2017 [facility] Act Partial > 150.0 High 23.4-35.0 32, test finding [address] [employer] Time seconds [address] [place] [id number] [phone] Laboratory 12/31/2017 [facility] Act Partial 30.1 N 23.4-35.0 34 test finding [address] [place] [place] [address] [phone] LDL 10/10/2017 [facility] Cholesterol 200 mg/dL <200 35, Cholesterol [address] [place] [address] [phone] Triglycerides 123 mg/dL <150 37 HDL Cholesterol 59 mg/dL >40 38 LDL-Cholesterol 116 mg/dL < 100 39 Reflex add FT3? Y Reflex add FT4? Y Comprehensive Metabolic 10/10/2017 [facility] Glucose 80 mg/dL N 74-106 Panel [address] [place] [address] [phone] BUN 14 mg/dL N 7-18 Creatinine 0.6 mg/dL N 0.6-1.3 Glom Filtration Rate, Estimate >60 mL/min >60 If >60 mL/min >60 40 BUN/Creat 23.3 ratio Sodium 141 mmol/L N 136-145 Potassium 4.0 mmol/L N 3.5-5.1 Chloride 108 mmol/L High 98-107 Carbon Dioxide 28 mmol/L N 21-32 Anion Gap 5 mEq/L Low 8-16 Calcium 8.8 mg/dL N 8.5-10.1 Total Protein 7.3 g/dL N 6.4-8.2 Albumin 3.9 g/dL N 3.4-5.0 Globulin 3.4 g/dL N 1.9-4.3 Alb/Glob 1.1 ratio Bilirubin,Total 0.2 mg/dL N 0.2-1.0 Sgot/Ast 17 U/L N 15-37 SGPT/Alt 17 U/L N 12-78 Alkaline Phosphatase 65 U/L N 45-117 Reflex add FT3? Y Reflex add FT4? Y TSH Reflex FT4 10/10/2017 [facility] Thyroid Stim 1.46 uIU/mL N 0.30-4.20 And/Or FT3 [address] [place] [address] [phone] Reflex add FT3? Y Reflex add FT4? Y Laboratory test 01/27/2016 N2N/CCD Import Alanine Aminotransferase 22 12 -78 finding (Alt/SGPT) Albumin 3.8 3.4-5.0 Albumin/Globulin Ratio 1.0 Alkaline Phosphatase 59 45-117 Anion Gap 7 Low 8-16 Aspartate Amino Transf (Ast/Sgot) 14 Low 15-37 BUN/Creatinine Ratio 25.7 Basophils # (Auto) 0.04 0.0-0.1 Basophils (%) (Auto) 0.5 0.0-1.1 Blood Urea Nitrogen 18 7-18 Calcium Level 8.7 8.5-10.1 Carbon Dioxide Level 26 21-32 Chloride Level 108 High 98-107 Creatinine 0.7 0.6-1.3 Eosinophils # (Auto) 0.11 0.0-0.5 Eosinophils (%) (Auto) 1.5 0.0-6.6 Globulin 3.7 1.9-4.3 Glucose Screen 91 74-106 Hematocrit 40.0 36.0-46.1 Hemoglobin 13.2 11.6-15.8 Lymphocytes # (Auto) 2.00 1.8-7.0 Lymphocytes (%) (Auto) 27.5 17.0-46.1 Mean Corpuscular Hemoglobin 29.0 25.9-32.7 Mean Corpuscular Hemoglobin Concent 33.0 30.8-34.3 Mean Corpuscular Volume 87.9 80.9-99.0 Mean Platelet Volume 10.0 8.9-12.4 Monocytes # (Auto) 0.49 0.3-0.9 Monocytes (%) (Auto) 6.7 4.3-13.2 Neutrophils # (Auto) 4.64 1.8-7.0 Neutrophils (%) (Auto) 63.8 40.4-72.8 Platelet Count 296 155-360 Potassium Level 3.6 3.5-5.1 RDW Coefficient of Variation 13.0 11.7-14.4 Red Blood Count 4.55 3.90-5.40 Red Cell Distribution Width 40.9 3-47 Sodium Level 141 136-145 Total Bilirubin 0.3 0.2-1.0 Total Creatine Kinase 189 26-192 Total Protein 7.5 6.4-8.2 White Blood Count 7.3 3.1-10.7 Laboratory test 01/23/2016 [facility] Laboratory Rapid Strep Negative N Negative 41 finding [phone] Molecular Laboratory test 08/25/2015 [facility] Throat Culture See Note [address] [place] [address] [phone] Urine Culture See Note 43, 44 Basic Metabolic Panel 01/11/2015 [facility] Glucose 85 mg/dL 74-106 [address] [place] [address] [phone] BUN 14 mg/dL 7-18 Creatinine 0.9 mg/dL 0.6-1.3 Glom Filtration Rate, Estimate >60 mL/min >60 If >60 mL/min >60 45 BUN/Creat 15.5 ratio Sodium 139 mmol/L 136-145 Potassium 4.1 mmol/L 3.5-5.1 Chloride 105 mmol/L 98-107 Carbon Dioxide 25 mmol/L 21-32 Anion Gap 9 mEq/L 8-16 Calcium 8.9 mg/dL 8.5-10.1 LDL Cholesterol 01/11/2015 [facility] Cholesterol 201 mg/dL High 150-200 46 Profile [address] [place] [address] [phone] Triglycerides 90 mg/dL 50-150 47 HDL Cholesterol 45 mg/dL Low 60-150 48 LDL-Cholesterol 138 mg/dL High 75-100 49 Liver Function Tests 01/11/2015 [facility] Total Protein 7.3 g/dL 6.4-8.2 [address] [place] [address] [phone] Albumin 4.0 g/dL 3.4-5.0 Globulin 3.3 g/dL 1.9-4.3 Alb/Glob 1.2 ratio Bilirubin,Total 0.4 mg/dL 0.2-1.0 Bilirubin,Direct < 0.1 mg/dL 0.0-0.2 Bilirubin,Indirect 0.3 mg/dL 0.0-0.9 Sgot/Ast 22 U/L 15-37 SGPT/Alt 30 U/L 12-78 Alkaline Phosphatase 63 U/L 45-117 Laboratory test 01/11/2015 [facility] Thyroid Stim 0.66 0.36-3.[address] Hormone uIU/[place] [address] [phone] Laboratory test 05/21/2012 N2N/CCD Import Throat-Beta 50 finding Strep ------ Culture <See Note> Urine Culture & 04/04/2012 N2N/CCD Import M 51 Sensitivi ------ <See Note> Laboratory test 12/01/2011 N2N/CCD Import Cytology Pap See Note 52 finding Urine Culture & 11/03/2011 N2N/CCD Import M 53 Sensitivi ------ <See Note> Urine Culture & 07/26/2011 N2N/CCD Import M 54 Sensitivi ------ <See Note> E.Coli 0157:H7 07/17/2011 N2N/CCD Import M 55 ------ <See Note> Urine Culture & 2011 N2N/CCD Import M 56, 57 Sensitivi ------ <See Note> Comp Metabolic 2011 N2N/CCD Import Albumin 3.9 GM/DL 3.6-5.4 Panel Albumin/Globulin Ratio 1.3 1-3 Alkaline Phosphatase 57 U/L 30-110 Alt (SGPT) 15 U/L 14-54 Anion Gap 8.0 mmol/L 2-11 58 Ast (Sgot) 16 U/L 12-42 BUN 12 mg/dL 6-24 BUN/Creatinine Ratio 17.1 8-20 Bilirubin Total 0.7 mg/dL 0.4-1.5 59 Calcium 8.9 mg/dL 8.1-9.9 Chloride 106 mmol/L 101-111 Co2 (Carbon Dioxide) 24.0 mmol/L 22-32 Creatinine 0.7 mg/dL 0.50-1.40 Globulin 3.0 GM/DL 2-4 Glucose 80 mg/dL 70-100 One Over Creatinine 1.42 Potassium 4.6 mmol/L 3.5-5.0 Sodium 138 mmol/L 135-145 Total Protein 6.9 GM/DL 6.2-8.1 eGFR 118.0 > 60 60 eGFR Non- 91.8 > 60 CBC Auto Diff 2011 N2N/CCD Import Abs Basophils 0 0-0.2 Abs Eosinophils 0.1 0-0.6 Abs Lymphs 1.8 1.0-4.8 Abs Mononuclear 0.5 0-0.8 Absolute Neutrophil Count 4.8 1.5-7.7 Basophil % 0.5 % 0-2 Eosinophil % 1.7 % 0-6 Gran % 66.9 % 38-83 Hematocrit 38 % 35-47 Hemoglobin 13.1 g/dL 12.0-16.0 Lymph % 24.5 % Low 25-47 Mean Corpuscular HGB Cone 34 g/dL 32-36 Mean Corpuscular Hemoglob 29 pg 27-31 Mean Corpuscular Volume 85 um3 79-97 Mean Platelet Volume 8.7 um3 7.4-10.4 Mononuclear % 6.4 % 1-9 Platelet Count 320 CUMM 150-450 Red Cell Count 4.46 CUMM 4.2-5.4 Redcell Distribution WDTH 13 % 10.5-15 White Blood Count 7.2 CUMM 4.8-10.8 Urine Culture & 06/08/2011 N2N/CCD Import Urine Culture Escherichia Coli 61 Sensitivi Sensitivi Laboratory test 06/08/2011 N2N/CCD Import Amikacin <=2 finding Ampicillin <=2 Cefazolin <=4 Ceftazidime <=1 Ceftriaxone <=1 Ciprofloxacin <=0.25 Gentamicin <=1 Imipenem <=1 Levofloxacin <=0.12 Nitrofurantoin <=16 Tigecycline <=0.5 Trimeth-Sulfa <=20 1 I26.99 2 D64.9 3 Note: Persistent reduction for 3 months or more in an eGFR <60 mL/min/1.73 m2 defines CKD. Patients with eGFR values >/=60 mL/min/1.73 m2 may also have CKD if evidence of persistent proteinuria is present. The original MDRD equation for estimated GFR is not valid for patients less than 18 years of age. Additional information may be found at [email or web address]. 4 Note: Persistent reduction for 3 months or more in an eGFR <60 mL/min/1.73 m2 defines CKD. Patients with eGFR values >/=60 mL/min/1.73 m2 may also have CKD if evidence of persistent proteinuria is present. The original MDRD equation for estimated GFR is not valid for patients less than 18 years of age. Additional information may be found at [email or web address]. 5 I26.99 6 Negative: <15 Indeterminate: 15 - 20 Low-Med Positive: >20 - 80 High Positive: >80 7 Negative: <13 Indeterminate: 13 - 20 Low-Med Positive: >20 - 80 High Positive: >80 8 Negative: <12 Indeterminate: 12 - 20 Low-Med Positive: >20 - 80 High Positive: >80 Performed at: - [facility] [id number] Scientific Helper: Destiny Claros MD, Phone: [phone] 9 An elevated antithrombin activity is of no known clinical significance. Direct Xa inhibitor anticoagulants such as rivaroxaban, apixaban and edoxaban will lead to spuriously elevated antithrombin activity levels possibly masking a deficiency. 10 This test was developed and its performance characteristics determined by [facility]. It has not been cleared or approved by the Food and Drug Administration. 11 Note: Persistent reduction for 3 months or more in an eGFR <60 mL/min/1.73 m2 defines CKD. Patients with eGFR values >/=60 mL/min/1.73 m2 may also have CKD if evidence of persistent proteinuria is present. The original MDRD equation for estimated GFR is not valid for patients less than 18 years of age. Additional information may be found at [email or web address]. 12 Result: Negative (no mutation found) Factor V Leiden is a specific mutation (R506Q) in the factor V gene that is associated with an increased risk of venous thrombosis. Factor V Leiden is more resistant to inactivation by activated protein C. As a result, factor V persists in the circulation leading to a mild hyper- coagulable state. The Leiden mutation accounts for 90% - 95% of APC resistance. Factor V Leiden has been reported in patients with deep vein thrombosis, pulmonary embolus, central retinal vein occlusion, cerebral sinus thrombosis and hepatic vein thrombosis. Other risk factors to be considered in the workup for venous thrombosis include the [id number] mutation in the factor II (prothrombin) gene, protein S and C deficiency, and antithrombin deficiencies. Anticardiolipin antibody and lupus anticoagulant analysis may be appropriate for certain patients, as well as homocysteine levels. Contact your local [facility] for information on how to order additional testing if desired. Genetic counselors are available for health care providers to discuss results at [phone] Methodology: DNA analysis of the Factor V gene was performed by allele- specific PCR. The diagnostic sensitivity and specificity is >99% for both. Molecular-based testing is highly accurate, but as in any laboratory test, diagnostic errors may occur. All test results must be combined with clinical information for the most accurate interpretation. This test was developed and its performance characteristics determined by [facility]. It has not been cleared or approved by the Food and Drug Administration. References: Adali Carvalho (1995). Clin Lab Med 16:169-186. Jerry Marin, PhD, [facility] Isis Russell, PhD, [facility] Keli Pandey M.S., PhD, [facility] Елена Griffiths, PhD, [facility]ACMG Vu Gomez, PhD, [facility] Sergio Greene PhD, FACMG Performed at: - [facility] [address] [place], [place] [id number] Scientific Helper: Constanza Da Silva MD, Phone: [phone] 13 Performed at: [facility] [id number] Scientific Helper: Destiny Claros MD, Phone: [phone] 14 Results are consistent with the presence of a lupus anticoagulant. NOTE: Only persistent lupus anticoagulants are thought to be of clinical significance. For this reason, repeat testing in 12 or more weeks after an initial positive result should be considered to confirm or refute the presence of a lupus anticoagulant, depending on clinical presentation. Results of lupus anticoagulant tests may be falsely positive in the presence of certain anticoagulant therapies. 15 Result: [id number] Single mutation (Q6734A) identified Interpretation: This individual is heterozygous for the MTHFR Q2735Z variant(one copy). The MTHFR C677T variant was not identified. This combination of results is not associated with an increased risk of hyperhomocysteinemia, venous thrombosis, coronary artery disease, or recurrent loss. However, hyperhomocysteinemia may also occur due to mutations in enzymes other than MTHFR that are involved in homocysteine metabolism, or arise due to acquired factors. In the evaluation of vascular and obstetric risk, consider measuring fasting homocysteine. Other risk factors may be detected through systematic clinical laboratory analysis. Methylenetetrahydrofolate reductase (MTHFR) is a noble enzyme in the folate pathway and is responsible for the metabolism of homocysteine. There are two common variants in the MTHFR gene, c.655c>T (p.[id number]), referred to as C677T, and c.1286A>C (p.Pmj347Pdm), referred to as F5649W. Individuals homozygous for C677T (two copies of the variant), have decreased activity of the MTHFR enzyme and a predisposition to hyperhomocysteinemia, particularly when deficient in folate. Hyperhomocysteinemia is a risk factor for venous thrombosis and coronary artery disease and is associated with an increased risk of open neural tube defects. The C677T variant does not independently increase risk of these conditions in the absence of hyperhomocysteinemia. The O3400O variant is not associated with elevated homocysteine levels unless a C677T variant is also present; however, the clinical significance of heterozygosity for both C677T and I3392C is controversial. Population data suggest that these two variants are not present on the same chromosome, but rare exceptions have been reported of triple variant MTHFR genotypes (ie. homozygous for one variant and heterozygous for the other). Homozygosity for C677T has an estimated frequency of 10% to 15% in Caucasians and 25% in Hispanics. Additional information: Dietary folic acid, B6 and B12 supplementation has been suggested to lower homocysteine levels in some people. Folic acid supplementation has been shown to reduce the occurrence of neural tube defects. Genetic counselors are available for health care providers to discuss results at [address] [place] [address]. Methodology: DNA analysis of the MTHFR gene was performed by PCR amplification followed by restriction analysis. The diagnostic sensitivity is >99% for both. Molecular-based testing is highly accurate, but as in any laboratory test, rare diagnostic errors may occur. All test results must be combined with clinical information for the most accurate interpretation. This test was developed and its performance characteristics determined by [facility]. It has not been cleared or approved by the Food and Drug Administration. References: Flash LD, Dimitrios Q. Am J Epidemiol 2000; 151(9):862-877. Princess MM, Demarco JA. Arch Pathol Lab Med 2007; 131(6):872-884. Frosst P et al. Shilpa Evelyn 1995; 10(1):111-113. Estuardo SE et al. Evelyn Med 2013; 15(2):153-156. Judi C et al. Obstet Gynecol 2011; 118(3):730-740. Chris B et al. Eur J Epidemiol 2013; 28(8):621-647. Jerry Marin, PhD, [facility] Isis Russell, PhD, [facility] Keli Pandey MMichael, PhD, [facility] Елена Griffiths, PhD, [facility] Vu Gomez, PhD, [facility] Sergio Greene, PhD, FACMG Performed at: [facility] [address] [place], [place] [id number] Scientific Helper: Constanza Da Silva MD, Phone: [phone] 16 Performed at: - [facility] [id number] Scientific Helper: Jerry Cisneros MD, Phone: [phone] 17 Protein S activity may be falsely increased (masking an abnormal, low result) in patients receiving direct Xa inhibitor (e.g., rivaroxaban, apixaban, edoxaban) or a direct thrombin inhibitor (e.g., dabigatran) anticoagulant treatment due to assay interference by these drugs. 18 This test was developed and its performance characteristics determined by [facility]. It has not been cleared or approved by the Food and Drug Administration. 19 This test was developed and its performance characteristics determined by [facility]. It has not been cleared or approved by the Food and Drug Administration. 20 SINGLE [id number] MUTATION IDENTIFIED (HETEROZYGOTE) Comment: A point mutation ([id number]) in the factor II (prothrombin) gene is the second most common cause of inherited thrombophilia. The incidence of this mutation in the [place] population is about 2% and in the population it is approximately 0.5%. This mutation is rare in the and population. Being heterozygous for a prothrombin mutation increases the risk for developing venous thrombosis about 2 to 3 times above the general population risk. Being homozygous for the prothrombin gene mutation increases the relative risk for venous thrombosis further, although it is not yet known how much further the risk is increased. In women heterozygous for the prothrombin gene mutation, the use of estrogen containing oral contraceptives increases the relative risk of venous thrombosis about 16 times and the risk of developing cerebral thrombosis is also significantly increased. In the prothrombin gene mutation increases risk for venous thrombosis and may increase risk for stillbirth, placental abruption, pre-eclampsia and growth restriction. If the patient possesses two or more congenital or acquired thrombophilic risk factors, the risk for thrombosis may rise to more than the sum of the risk ratios for the individual mutations. This assay detects only the prothrombin T86204R mutation and does not measure genetic abnormalities elsewhere in the genome. Other thrombotic risk factors may be pursued through systematic clinical laboratory analysis. These factors include the R506Q (Leiden) mutation in the Factor V gene, plasma homocysteine levels, as well as testing for deficiencies of antithrombin III, protein C and protein S. Genetic Counselors are available for health care providers to discuss results at [phone] Methodology: DNA analysis of the Factor II gene was performed by PCR amplification followed by restriction analysis. The diagnostic sensitivity is >99% for both. All the tests must be combined with clinical information for the most accurate interpretation. Molecular-based testing is highly accurate, but as in any laboratory test, diagnostic errors may occur. This test was developed and its performance characteristics determined by [facility]. It has not been cleared or approved by the Food and Drug Administration. Poort SR, et al. Blood. 1996; 88:7008-6037. Cirilo CASTILLO. Circulation. 2004; 110:e15-e18. Melvin I, et al. Arterioscler Thromb Vasc Biol. 1999; 19:700-703. Jerry Marin, PhD, FAC[facility] Isis Russell, PhD, [facility] Keli Pandey MVijayS., PhD, [facility] Елена Griffiths, PhD, [facility]AC[facility] Vu Gomez, PhD, [facility] Sergio Greene, PhD, FACMG Performed at: [facility] [place], [place] [id number] Scientific Helper: Constanza Da Silva MD, Phone: [phone] 21 BILATERAL PE, SOB, CHEST PAIN 22 SITTING UP IN BED 23 Is patient on heparin protocol? Y 24 Note: Persistent reduction for 3 months or more in an eGFR <60 mL/min/1.73 m2 defines CKD. Patients with eGFR values >/=60 mL/min/1.73 m2 may also have CKD if evidence of persistent proteinuria is present. The original MDRD equation for estimated GFR is not valid for patients less than 18 years of age. Additional information may be found at www.[email or web address]. 25 Is patient on heparin protocol? Y Is patient on anticoagulants? Heparin 26 Is patient on heparin protocol? Y Is patient on anticoagulants? Heparin 27 SITTING UP IN BED 28 BILATERAL PE SOB CHEST PAIN 29 Note: Persistent reduction for 3 months or more in an eGFR <60 mL/min/1.73 m2 defines CKD. Patients with eGFR values >/=60 mL/min/1.73 m2 may also have CKD if evidence of persistent proteinuria is present. The original MDRD equation for estimated GFR is not valid for patients less than 18 years of age. Additional information may be found at [email or web address]. 30 BILATERAL PE, SOB, CHEST PAIN 31 Is patient on heparin protocol? Y 32 BILATERAL PE SOB CHEST PAIN 33 Result confirmed by repeat analysis. 34 KNEE SURG LAST SUNDAY, SOB, BLOOD CLOT? 35 Z13.6 36 Reference Guidelines*: Desirable: ........... < 200 mg/dL Borderline High: ..... 200-239 mg/dL High: ................ >=240 mg/dL * The National Cholesterol Education Program (NCEP) 37 Reference Guidelines*: Normal: ............. < 150 mg/dL Borderline High: .... 150-199 mg/dL High: ............... 200-499 mg/dL Very High: .......... > 500 mg/dL * Source: National Cholesterol Education Program (NCEP) 38 Reference Guidelines*: Low HDL: ..... < 40 mg/dL Normal: ..... 40-60 mg/dL Desirable: ... > 60 mg/dL *The National Cholesterol Education Program(NCEP) 39 Reference Guidelines*: Optimal:........... <100 mg/dL Near Optimal....... 100-129 mg/dL Borderline High.... 130-159 mg/dL High............... 160-189 mg/dL Very High.......... >=190 mg/dL * Source: National Cholesterol Education Program (NCEP) 40 Note: Persistent reduction for 3 months or more in an eGFR <60 mL/min/1.73 m2 defines CKD. Patients with eGFR values >/=60 mL/min/1.73 m2 may also have CKD if evidence of persistent proteinuria is present. The original MDRD equation for estimated GFR is not valid for patients less than 18 years of age. Additional information may be found at [email or web address]. 41 Statistician Mathematical: [id number] AAMIR LAIRD Due to the increased sensitivity of molecular testing, reflex cultures are no longer performed. 42 NORMAL THROAT JORGE L 43 Organism 1 ! BETA STREPTOCOCCUS GROUP B Quantity ! > 100,000 CFU/mL RECOMMENDED THERAPY: ! PENICILLIN OR AMPICILLIN. Organism 2 ! ESCHERICHIA COLI Quantity ! 50,000 - 100,000 CFU/mL ESCHERICHIA COLI Target Route Dose M.I.C. RX AB COST ------ ----- -------- ------ -- ------ NITROFURANTOIN <=16 S TRIMETHOPRIM/SULFAMETHOXAZOLE <=20 S AMPICILLIN >=32 R CEFAZOLIN <=4 S AMPICILLIN/SULBACTAM >=32 R CIPROFLOXACIN <=0.25 S PIPERACILLIN/TAZOBACTAM <=4 S CEFTAZIDIME <=1 S CEFTRIAXONE <=1 S CEFEPIME <=1 S LEVOFLOXACIN <=0.12 S IMIPENEM <=0.25 S GENTAMICIN <=1 S TOBRAMYCIN <=1 S 44 08/26/15 (Thr Aug 26) 04:35 PM FATOUMATA JONES treated with bactrim DS. Will call to follow up on symptoms 45 Note: Persistent reduction for 3 months or more in an eGFR <60 mL/min/1.73 m2 defines CKD. Patients with eGFR values >/=60 mL/min/1.73 m2 may also have CKD if evidence of persistent proteinuria is present. The original MDRD equation for estimated GFR is not valid for patients less than 18 years of age. Additional information may be found at [email or web address]. 46 Reference Guidelines*: Desirable: ........... < 200 mg/dL Borderline High: ..... 200-239 mg/dL High: ................ >=240 mg/dL * The National Cholesterol Education Program (NCEP) 47 Reference Guidelines*: Normal: ............. < 150 mg/dL Borderline High: .... 150-199 mg/dL High: ............... 200-499 mg/dL Very High: .......... > 500 mg/dL * Source: National Cholesterol Education Program (NCEP) 48 Reference Guidelines*: Low HDL: ..... < 40 mg/dL Normal: ..... 40-60 mg/dL Desirable: ... > 60 mg/dL *The National Cholesterol Education Program(NCEP) 49 Reference Guidelines*: Optimal:........... <100 mg/dL Near Optimal....... 100-129 mg/dL Borderline High.... 130-159 mg/dL High............... 160-189 mg/dL Very High.......... >=190 mg/dL * Source: National Cholesterol Education Program (NCEP) 50 ------- RUN DATE: 05/23/12 [facility] NMI LIVE PAGE 1 RUN TIME: 825 Specimen Inquiry RUN USER: INTERFACE ----- Name: RAFIQ GARRISON Status: REG REF Re05/21/12 Age/Sex: 41/F Unit#: [id number] Location: [facility] : [birth year] ----- SPEC #: [id number] FOREIGN: 05/21/12 STATUS: REANNA REQ #: [id number] RECD: 05/21/[address]: Blue CENTENO,Tesha Cole SOURCE: THROAT ENTR: 05/21/[address]: TANNER: ORDERED: THROAT-BETA STR QUERIES: MEDENT REQUISITION # [id number] ACT WKST: BS 05/23/12 #1 ----- Procedure Result Verified Site ----- > THROAT-BETA STREP CULTURE Final 05/23/12-825 ML NEGATIVE FOR GROUP A BETA STREPTOCOCCUS ----- ML - [facility] State Permit #[id number] [address] [place] [address] ----- DEPARTMENT OF PATHOLOGY, [address] [place] [address] [facility] Permit #[id number] Kofi Marquez M.D. Historical Society Director ----- 51 ------- RUN DATE: 04/06/12 [facility] NMI LIVE PAGE 1 RUN TIME: 1047 Specimen Inquiry RUN USER: INTERFACE ----- Name: RAFIQ GARRISON Status: REG REF Re04/04/12 Age/Sex: 41/F Unit#: [id number] Location: [facility] : [birth year] ----- SPEC #: [id number] FOREIGN: 04/04/12 STATUS: COMP REQ #: [id number] RECD: 04/04/12 [facility] DR: Blue CENTENO,Tesha Cole SOURCE: URINE ENTR: 04/04/[address]: SPDES: ORDERED: URINE C S QUERIES: MEDENT REQUISITION # [id number] SPECIMEN DESCRIPTION: URINE, RANDOM ACT WKST: UR 04/06/12 #1 ----- Procedure Result Verified Site ----- > URINE CULTURE SENSITIVI Final 04/06/12-1047 ML SPECIMEN CONTAINS NORMAL URETHRAL OR PERINEAL JORGE L AND DOES NOT SUGGEST URINARY TRACT INFECTION ----- - [facility] Permit #[id number] [address] [facility] [address] ----- DEPARTMENT OF PATHOLOGY, [address] [place] [address] [facility] Permit #[id number] Hayder Saeed M.D. Director Benji Estrada M.D. Historical Society Director ----- Cytology Laboratory [address] [place] [address], [address] [place] [address] CYTOLOGY REPORT Name: Rafiq Garrison : 1970 (Age: 41) Sex: F Location: [facility] Date Collected: 12/01/2011 Billing #: [id number] Date Received: 12/01/2011 Physician( s): TESHA SUAREZ MD Source of Specimen: ENDOCERVICAL/ECTOCERVICAL THIN PREP Clinical Information: Date of Last Menstrual Period: 11/19/11 Menstrual History: Regular Specimen Adequacy: SATISFACTORY FOR EVALUATION. ADEQUATE ENDOCERVICAL/TRANSFORMATION ZONE. General Categorization: NEGATIVE FOR INTRAEPITHELIAL LESION OR MALIGNANCY. lgs Electronic Signature SADE Carrasco (ASCP) Reported: 12/06/2011 Cytology Outreach [facility] ICD-9 Code(s) V72.31 53 ------- RUN DATE: 11/05/11 [facility] NMI LIVE PAGE 1 RUN TIME: 86 Specimen Inquiry RUN USER: INTERFACE ----- Name: RAFIQ GARRISON Status: REG REF Re11/03/11 Age/Sex: 41/F Unit#: [id number] Location: [facility] : 68 ----- SPEC #: [id number] FOREIGN: 11/03/11 STATUS: COMP REQ #: [id number] RECD: 11/03/[address]: URINE ENTR: 11/03/11 [facility] DR: YUNIOR: ORDERED: URINE C S QUERIES: SPECIMEN DESCRIPTION: URINE, RANDOM ----- Procedure Result Verified Site ----- > URINE CULTURE SENSITIVI Final 11/05/11-0843 ML Organism 1 ESCHERICHIA COLI COLONY COUNT 50-75,000 ORGANISMS/ML (MANY) 1. ESCHERICHIA COLI RX M.I.C. ------ --------- AMIKACIN S <=2 LEVOFLOXACIN S <=0.12 AMPICILLIN S <=2 CEFAZOLIN S <=4 CEFTRIAXONE S <=1 CIPROFLOXACIN S <=0.25 GENTAMICIN S <=1 TIGECYCLINE S < =0.5 CEFTAZIDIME S <=1 IMIPENEM S <=1 NITROFURANTOIN S <=16 TRIMETH-SULFA S <=20 * These antibiotics are not available in the [facility] Formulary. Contact the Microbiology Department for any additional antibiotic reporting. ----- - [facility] State Permit #[id number] [address] [place] [address] ----- DEPARTMENT OF PATHOLOGY, [address] [place] [address] [facility] Permit #[id number] Kofi Marquez M.D. Historical Society Director ----- 54 ------- RUN DATE: 07/29/11 [facility] NMI LIVE PAGE 1 RUN TIME: 900 Specimen Inquiry RUN USER: INTERFACE ----- Name: RAFIQ GARRISON Status: REG REF Re07/26/11 Age/Sex: 41/F Unit#: [id number] Location: [facility] : [birth year] ----- SPEC #: [id number] FOREIGN: 07/26/11 STATUS: COMP REQ #: [id number] RECD: 07/27/11 [facility] DR: Blue CENTENO,Tesha Cole SOURCE: URINE ENTR: 07/27/11 [facility] DR: YUNIOR: ORDERED: URINE C S QUERIES: MEDENT REQUISITION # [id number] SPECIMEN DESCRIPTION: URINE, CLEAN CATCH ACT WKST: UR 07/29/11 #1 ----- Procedure Result Verified Site ----- > URINE CULTURE SENSITIVI Final 07/29/11 ML SPECIMEN CONTAINS NORMAL URETHRAL OR PERINEAL JORGE L AND DOES NOT SUGGEST URINARY TRACT INFECTION ----- ML - [facility] State Permit #[id number] [address] [place] [address] ----- DEPARTMENT OF PATHOLOGY, [address] [place] [address] [facility] Permit #[id number] Kofi Marquez M.D. Historical Society Director ----- 55 ------- RUN DATE: 07/19/11 [facility] NMI LIVE PAGE 1 RUN TIME: 2264 Specimen Inquiry RUN USER: INTERFACE ----- Name: RAFIQ GARRISON Status: JAVIER WALTERI Re07/13/11 Age/Sex: 41/F Unit#: [id number] Location: : 68 ----- SPEC #: [id number] FOREIGN: 07/17/11 STATUS: REANNA REQ #: [id number] RECD: 07/17/11 [facility] [address]: Cathy CENTENO,Darion Trevizo SOURCE: STOOL ENTR: 07/17/11 [facility] DR: Blue CENTENO,Tesha Cole SPDESC: ORDERED: E.COLI 0157:H7, VIBRIO CULTURE, STOOL CULTURE, O P: KI/Servando MILLS QUERIES: [employer] MEDICAL RECORD # ACT WKST: SH 07/18/11 #1 ----- Procedure Result Verified Site ----- > STOOL CULT SENSITIVITY Final 07/19/11-1048 ML NEGATIVE FOR THE ENTERIC PATHOGENS - SALMONELLA, SHIGELLA, AEROMONAS, PLESIOMONAS AND YERSINIA. VIBRIO AND E. COLI 0157 NOT ROUTINELY TESTED FOR IN A STOOL CULTURE. PLEASE SUBMIT SAMPLE WITH SPECIFIC REQUEST FOR DESIRED ORGANISM(S). > STOOL SPECIMEN DESCRIPTION Final 07/18/11 ML STOOL COLOR BROWN STOOL FORM FORMED STOOL CONSISTENCY FIRM > CAMPYLOBACTER CULTURE Final 07/19/11 ML NO GROWTH OF CAMPYLOBACTER AFTER 48 HOURS > SHIGA TOXIN 1 AND 2 (EHEC) Final 07/19/11 ML SHIGA TOXIN 1 NEGATIVE BY IMMUNOCHROMATOGRAPHIC ASSAY SHIGA TOXIN 2 NEGATIVE BY IMMUNOCHROMATOGRAPHIC ASSAY > E.COLI 0157:H7 CULTURE Final 07/19/11 ML NO GROWTH OF E COLI 0157:H7 > VIBRIO CULTURE Final 07/19/11 ML NEGATIVE FOR VIBRIO AFTER 48 HOURS > O P: GIARDIA/CRYPTO SCREEN Final 07/19/11 ML GIARDIA ANTIGEN NEGATIVE BY IMMUNOASSAY CRYPTOSPORIDIUM ANTIGEN NEGATIVE BY IMMUNOASSAY Giardia and cryptosporidium antigen testing performed by immunoassay. If patient is immunocompromised or has traveled to or is from a developing country, a full ova and parasite exam with microscopic (OPMIC) is recommended. All samples will be held one month in case full ova and parasite testing is requested. Contact the Microbiology Department ----- DEPARTMENT OF PATHOLOGY, [address] [place] [address] [facility] Permit #[id number] Hayder Saeed M.D. Director Benji Estrada M.D. Historical Society Director ----- ----- RUN DATE: 07/19/11 [facility] NMI LIVE PAGE 2 RUN TIME: 0150 Specimen Inquiry RUN USER: INTERFACE ----- Name: EDUARDO GARRISONORES Status: DEP CLI Re07/13/11 Age/Sex: 41/F Unit#: [id number] Location: : 68 -- -- CONTINU ED ----- ----- Procedure Result Verified Site ----- O P: GIARDIA/CRYPTO SCREEN Final (continued) 07/19/11-1422 at [phone]. TEST LIMITATIONS: As with all diagnostic procedures, the results obtained should be used in conjunction with other clinical information available the physician. Negative results can occur in samples containing antigen below lower limits of detection of the assay. The use of colonic washes, aspirates or other diluted sample types has not been established and could affect the performance of the assay. Stool samples contaminated with an oily or particulate base (eg. Barium, mineral oil etc.) could interfere with the test and are not recommended. > C. DIFFICILE AMPLIFIED DNA Final 07/17/11-1456 ML C. DIFFICILE AMPLIF DNA NEGATIVE: NO TOXIGENIC C. DIFFICILE DETECTED TEST LIMITATIONS: Assay does not distinguish between viable and non-viable organisms. Test results are to be used in conjunction with information available from the patient clinical evaluation and other diagnostic procedures. Two distinct groups have been identified that can harbor C. difficile asymptomatically at very high rates. Colonization at rates up to 50% and higher have been reported in infants and rates up to 32% in cystic fibrosis patients. ----- - [facility] State Permit #[id number] [address] [place] [address] ----- DEPARTMENT OF PATHOLOGY, [address] [place] [address] [facility] Permit #[id number] Hayder Saeed M.D. Director Benji Estrada M.D. Historical Society Director ----- 56 Treated with macrdantin. 57 ------- RUN DATE: 07/15/11 [facility] NMI LIVE PAGE 1 RUN TIME: 834 Specimen Inquiry RUN USER: INTERFACE ----- Name: RAFIQ GARRISON Status: DEP CLI Re07/13/11 Age/Sex: 41/F Unit#: [id number] Location: [facility] : 68 ----- SPEC #: [id number] FOREIGN: 07/13/11 STATUS: COMP REQ #: [id number] RECD: 07/13/11 [facility] [address]: Cathy CENTENO,Darion Trevizo SOURCE: URINE ENTR: 07/13/11 [facility] DR: Blue [facility]ENTENO,[facility]es[facility] Cole [facility]: UR[facility] C S QUERIES: SPECIMEN DESCRIPTION: URINE, CLEAN CATCH ----- Procedure Result Verified Site ----- > URINE CULTURE SENSITIVI Final 07/15/110834 ML Organism 1 ESCHERICHIA COLI COLONY COUNT 50-75,000 ORGANISMS/ML (MANY) 1. ESCHERICHIA COLI RX M.I.C. ------ --------- AMIKACIN S <=2 LEVOFLOXACIN S <=0.12 AMPICILLIN S <=2 CEFAZOLIN S <=4 CEFTRIAXONE S <=1 CIPROFLOXACIN S <=0.25 GENTAMICIN S <=1 TIGECYCLINE S <=0.5 CEFTAZIDIME S <=1 IMIPENEM S <=1 NITROFURANTOIN S <=16 TRIMETH-SULFA S <=20 *These antibiotics are not available in the [facility] Formulary. Contact the Microbiology Department for any additional antibiotic reporting. ----- - [facility] State Permit #[id number] [address] [place] [address] ----- DEPARTMENT OF PATHOLOGY, [address] [place] [address] [facility] Permit #[id number] Hayder Saeed M.D. Director Benji Estrada M.D. Historical Society Director ----- 58 Anion gap measurement may be of limited value in the presence of any alkalosis, especially in a combined acid base disorder. . 59 A metabolite of Naproxen, O-desmethylnaproxen, has been shown to interfere with the Rony- method for measuring total bilirubin. Samples from patients who have taken Naproxen have shown spurious elevation in total bilirubin levels. 60 Because ethnic data is not always readily available, this report includes an eGFR for both -Americans and non- Americans. The National Kidney Disease Education Program (NKDEP) does not endorse the use of the MDRD equation for patients that are not between the ages of 18 and 70, are , have extremes of body size, muscle mass, or nutritional status, or are non- or non-. According to the National Kidney Foundation, irrespective of diagnosis, the stage of the disease is based on the level of kidney function: Stage Description GFR(mL/min/1.73 m(2)) 1 Kidney damage with normal or decreased GFR 90 2 Kidney damage with mild decrease in GFR 60- 89 3 Moderate decrease in GFR 30-59 4 Severe decrease in GFR 15-29 5 Kidney failure <15 (or dialysis) 61 50^25-50,000 ORGANISMS/ML (MODERATE)^CCU Procedures Date Code Description Status 10/29/2017 [id number] Mammogram Completed Encounters Type Date Location Provider Dx Diagnosis Office Visit 10/03/2018 Oncology Office Pericomahi, I26.99 Other pulmonary 11:30a Akhil, DO embolism without acute cor pulmonale 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 D64.9 Anemia, unspecified Office Visit 09/17/2018 11:00a Oncology Office Pericoferozramirez, I26.99 Other pulmonary Akhil, DO embolism without acute cor pulmonale 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 D64.9 Anemia, unspecified M79.605 Pain in left leg Office Visit 08/30/2018 2:15p Family Medicine Liss Anderson, J06.[address] NUT GRINDER respiratory infection, unspecified Office Visit 06/24/2018 1:00p Oncology Office Pericomahi, I26.99 Other pulmonary Akhil, DO embolism without acute cor pulmonale I82.402 Acute embolism and thombos unsp deep veins of l low extrem D64.9 Anemia, unspecified Office Visit 04/24/2018 8:30a Oncology Office Flakita, E61.1 Iron deficiency Akhil, J30.9 Allergic rhinitis, unspecified Z86.711 Personal history of pulmonary embolism Office Visit 04/10/2018 8:45a Family Medicine Fatoumata Jones J30.9 Allergic rhinitis, Tawanda ORTIZ MVijayD. unspecified K21.9 Gastro-esophageal reflux disease without esophagitis Office Visit 03/01/2018 8:45a Oncology Office Flakita, I26.99 Other pulmonary Akhil, DO embolism without acute cor pulmonale D64.9 Anemia, unspecified J06.9 Acute upper respiratory infection, unspecified Office Visit 02/15/2018 2:45p Oncology Office Flakita, I26.99 Other pulmonary Akhil, DO embolism without acute cor pulmonale D68.69 Other thrombophilia D64.9 Anemia, unspecified R05 Cough J06.9 Acute upper respiratory infection, unspecified M79.605 Pain in left leg Office Visit 02/06/2018 4:30p [facility] Fatoumata De La Rosa J06.9 Acute upper Tawanda ORTIZ M.Barak respiratory infection, unspecified Office Visit 01/18/2018 9:30a Oncology Office Flakita, I26.99 Other pulmonary Akhil, DO embolism without acute cor pulmonale D64.9 Anemia, unspecified D68.69 Other thrombophilia Office Visit 01/04/2018 1:00p Oncology Office Flakita, I26.99 Other pulmonary Akhil, DO embolism without acute cor pulmonale D64.9 Anemia, unspecified Office Visit 01/04/2018 9:30a [facility] Medicine Fatoumata Jones, I26.99 Other pulmonary Tawanda ORTIZ M.DVijay embolism without acute cor pulmonale J30.9 Allergic rhinitis, unspecified Office Visit 10/10/2017 2:30p [facility] Fatoumata De La Rosa, Z00.00 Encntr for Tawanda ORTIZ M.D. general adult medical exam w/o abnormal findings Z12.4 Encounter for screening for malignant neoplasm of cervix Z12.31 Encntr screen mammogram for malignant neoplasm of breast Z13.6 Encounter for screening for cardiovascular disorders Office Visit 08/25/2015 10:15a Family Medicine Fatoumata Fernandez M.D. R30.[address] J02.9 Acute pharyngitis, unspecified L30.9 Dermatitis, unspecified Office Visit 07/27/2015 3:00p [facility] Fatoumata De La Rosa J06.9 Acute upper Tawanda ORTIZ M.D. respiratory infection, unspecified Office Visit 07/20/2015 8:30a Family Medicine Fatoumata Jones, L30.9 Dermatitis, West RD M.D. unspecified M79.644 Pain in right finger(s) H66.91 Otitis media, unspecified, right ear Office Visit 07/06/2015 8:45a Family Medicine Fatoumata Jones, L30.9 Dermatitis, West ANGEL MVijayDVijay unspecified M79.644 Pain in right finger(s) Office Visit 06/29/2015 1:00p [facility] Medicine Fatoumata Jones, L30.9 Dermatitis, Tawanda HaynesDVijay unspecified Office Visit 06/22/2015 10:30a [facility] Medicine Fatoumata Jones, L30.9 Dermatitis, Tawanda HaynesDVijay unspecified M54.5 Low back pain Office Visit 04/28/2015 1:30p [facility] Blue, 680.2 Carbuncle & Tawanda Parkinson M.D. Furuncle Trunk Office Visit 03/26/2015 10:20a [facility] Medicine Blue 680.2 Carbuncle & Tawanda Parkinson M.D. Furuncle Trunk 782.1 Rash & Other Nonspec Skin Eruption Office Visit 01/11/2015 1:00p [facility] Blue V70.0 Examination Tawanda Parkinson M.D. General Medical Routine AT Health Care Facility V72.31 Routine Threader Examination 110.3 Dermatophytosis Groin & Perianal Area V18.0 History Family Diabetes Mellitus 782.1 Rash & Other Nonspec Skin Eruption Office Visit 01/01/2015 Family Khurram 708.1 Urticaria 11:15a Medicine MONICA Cordon Idiopathic RD Plan of Treatment Future Appointment(s):03/17/2019 8:30 am - Akhil Boggs, DO at Oncology Zsuwty3210/03/2018 - Akhil Boggs, DOI26.99 Other pulmonary embolism without acute cor pulmonaleFollow up:6 neamntL51.59 Other primary dyzunmehhqaekY85.9 Anemia, unspecified
[2018-11-16 14:45] VITALS: BP 136/83
[2018-11-16] MEDS ORDERED: Acetaminophen TAB* 325 MG PO ONE (15:21)
--- NOTE | 2018-11-16 15:22 | UC ---
FLU HPI - HPI Summary HPI Summary: Pt c/o sudden onset of fever, chills, bilateral ear ache X 2 days. - History of Current Complaint Chief Complaint: UCGeneralIllness Stated Complaint: SORE THROAT,CHILLS,FEVER,BILAT EAR Time Seen by Provider: 11/16/18 14:59 Hx Obtained From: Patient Hx Last Menstrual Period: December ?: No Onset/Duration: Sudden Onset, Lasting Days, Still Present Severity Currently: Moderate Severity Initially: Moderate Pain Intensity: 8 Associated Signs & Symptoms: Positive: Fever, Myalgia, Nasal Congestion, Headache Related Hx: Possible Flu/Infectious Exposure - Risk Factors Influenza Risk Factors: Negative - Allergy/Home Medications Allergies/Adverse Reactions: Allergies Allergy/AdvReac Type Severity Reaction Status Date / Time Latex, Natural Rubber Allergy Intermediate Hives Verified 11/16/18 14:45 Home Medications: Home Medications Apixaban* [Eliquis*] 5 mg PO BID 11/16/18 [History Confirmed 11/16/18] D-Methorphan/PE/Acetaminophen [Karen-Vaughan Plus Day Cap] 1 each PO DAILY [History Confirmed 11/16/18] Loratadine [Claritin] 10 mg PO DAILY 11/16/18 [History Confirmed 11/16/18] Pantoprazole TAB * [Protonix TAB*] 40 mg PO DAILY 11/16/18 [History Confirmed ] PMH/Surg Hx/FS Hx/Imm Hx Previously Healthy: Yes - Surgical History Surgical History: Yes Surgery Procedure, Year, and Place: 1987. Tubal Ligation 1991. left knee surgery. pulomary embolism post surgery - Family History Known Family History: Positive: None, Cardiac Disease - BROTHER'S FIRST HEART ATTACK IN EARLY 40'S, Diabetes - Social History Occupation: Employed Full-time Lives: With Family Alcohol Use: Occasionally Substance Use Type: None Smoking Status (MU): Never Smoked Tobacco Have You Smoked in the Last Year: No - Immunization History Vaccination Up to Date: Yes Review of Systems All Other Systems Reviewed And Are Negative: Yes Constitutional: Positive: Fever, Chills, Fatigue Skin: Positive: Negative Eyes: Positive: Negative ENT: Positive: Ear Ache Respiratory: Positive: Negative Cardiovascular: Positive: Negative Gastrointestinal: Positive: Negative Genitourinary: Positive: Negative Motor: Positive: Negative Neurovascular: Positive: Negative Musculoskeletal: Positive: Myalgia Neurological: Positive: Headache Psychological: Positive: Negative Is Patient Immunocompromised?: No Physical Exam Triage Information Reviewed: Yes Appearance: Ill-Appearing Vital Signs: Initial Vital Signs Temp 100.3 F 11/16/18 14:40 Pulse 102 11/16/18 14:40 Resp 16 11/16/18 14:40 BP 136/83 11/16/18 14:40 Pulse Ox 100 11/16/18 14:40 Vital Signs Reviewed: Yes Eye Exam: Normal ENT Exam: Other ENT: Positive: TM bulging Dental Exam: Normal Neck exam: Normal Respiratory Exam: Normal Cardiovascular Exam: Normal Musculoskeletal Exam: Normal Neurological Exam: Normal Psychological Exam: Normal Skin Exam: Normal Flu Course/Dx - Differential Dx/Diagnosis Differential Diagnosis/HQI/PQRI: Influenza Provider Diagnosis: Viral syndrome, Ear ache Discharge - Sign-Out/Discharge Documenting (check all that apply): Patient Departure All imaging exams completed and their final reports reviewed: No Studies - Discharge Plan Condition: Stable Disposition: HOME Patient Education Materials: Pseudoephedrine (By mouth), Earache (ED), Viral Syndrome (ED) Referrals: Liss Anderson NP [Primary Care Provider] - If Needed - Billing Disposition and Condition Condition: STABLE Disposition: Home - Attestation Statements Provider Attestation: Per institutional requirements, I have reviewed the chart, however, I was not consulted specifically or made aware of this patient by the midlevel provider. I did not personally evaluate, interact with , or disposition this patient.
[2018-11-16 15:30] LABS: Influenza A Molecular NEGATIVE (Negative); Influenza B Molecular NEGATIVE (Negative)
== END 2018-11-16 15:36 | disposition home or self-care (01) ==
LOC: UCCORT 12:52
DX: B34.9 Viral infection, unspecified (principal); H92.03 Otalgia, bilateral; J02.9 Acute pharyngitis, unspecified; M79.10 Myalgia, unspecified site; R09.81 Nasal congestion; R51 Headache; Z91.040 Latex allergy status
CPT/HCPCS: 99212; A9270-GY; G0463